=== PATIENT | female | born 1970 | race Caucasian/White ===

== ENCOUNTER 2017-08-17 13:19 | Day surgery (SDC) | payer BC ==
[2017-08-16 10:43] VITALS: BMI 22.6
[2017-08-17] MEDS ORDERED: ONDANSETRON 4 MG/2 ML VIAL IVPUSH PRN (14:10)
[2017-08-17] MEDS ORDERED: PROMETHAZINE HCL 25 MG/1 ML VIAL IVPUSH PRN (14:10)
[2017-08-17] MEDS ORDERED: oxyCODONE HCL 5 MG TABLET PO PRN (14:10)
[2017-08-17] MEDS ORDERED: LACTATED RINGERS SOLUTION 1,000 ML IV SCH (14:15)
[2017-08-17] MEDS ORDERED: MIDAZOLAM HCL 2 MG/2 ML SINGLE DOSE VIAL ONE ×2 (14:42)
--- NOTE | 2017-08-17 14:42 | HP ---
History & Physical Update - History History: No Change Currently as noted:: Menorrhagia, anemia improved on OCP - Physical Physical: No Change - Assessment Assessment: No Change - Plan Plan: No Change Currently as noted:: Hysteroscopy, D&C, endometrial ablation
[2017-08-17] MEDS ORDERED: PROPOFOL 20 ML ONE (14:47)
[2017-08-17] MEDS ORDERED: SUCCINYLCHOLINE CHLORIDE 200 MG/10 ML VIAL ONE (14:48)
[2017-08-17] MEDS ORDERED: ceFAZolin SODIUM 1 GM VIAL IVPB ONE (14:59)
--- NOTE | 2017-08-17 16:11 | OP ---
Operative Note - Note: Operative Date: 08/17/17 Pre-Operative Diagnosis: Menometrorrhagia, Anemia Operation: Hysteroscopy, D&C, suction, thermal endometrial ablation Findings: EUA= Active vaginal bleeding, Bulky AV uterus c/w ~10wk Hysteroscopy= normal uterine cavity with thick, irregular, sloughing endometrium. Post-Operative Diagnosis: Same as Pre-op Surgeon: Aaron Mendiola Anesthesiologist/LASER BEAM MACHINE OPERATOR: Lily Dinh MD Anesthesia: General Specimens Removed: Endometrial curettings Estimated Blood Loss (mls): 30 Blood Volume Replaced (mls): 0 Fluid Volume Replaced (mls): 700 Operative Report Dictated: Yes
[2017-08-17] MEDS ORDERED: ACETAMINOPHEN 1000 MG/100 ML VIAL (NON FORMULARY) IVPB ONE (16:29)
[2017-08-17] MEDS ORDERED: ACETAMINOPHEN INJECTION 100 ML IVPB ONE (16:36)
[2017-08-17 18:47] VITALS: TEMP 98.4
[2017-08-17] MEDS ORDERED: oxyCODONE HCL 5 MG TABLET ONE (18:57)
[2017-08-17 20:54] VITALS: BP 139/72; PULSE 60
--- NOTE | 2017-08-18 01:00 | OP ---
DATE OF OPERATION: 08/17/2017 PREOPERATIVE DIAGNOSIS: Menometrorrhagia, anemia. POSTOPERATIVE DIAGNOSIS: Menometrorrhagia, anemia. PROCEDURE: Hysteroscopy, dilation and curettage, uterine suction, global thermal endometrial ablation. SURGEON: Krishna Mendiola M.D. INSIDE SALES ADVERTISING EXECUTIVE: None. ANESTHESIOLOGIST: Lily Dinh M.D. ANESTHESIA: General. COMPLICATIONS: None. ESTIMATED BLOOD LOSS: 70 mL. INTRAVENOUS FLUIDS: 700 mL of crystalloids. PATHOLOGY: Endometrial curettings. FINDINGS: Examination under anesthesia revealed a normal vagina and cervix with active bleeding from the cervix. Bimanual examination showed a bulky anteverted uterus consistent with approximately 10 weeks' gestation and size. Hysteroscopy revealed a normal uterine cavity with thick irregular and endometrium as well as blood clots. Postoperative hysteroscopy revealed good hemostasis with good ablation results. PROCEDURE: The patient was met preoperatively. Risks, benefits, and alternatives of surgery were discussed in detail. The consents were reviewed. We discussed the expectations from the endometrial ablation including but not limited to postoperative pain, risk of infection, bleeding, risk of failed ablation, risk of thermal gonzalez, risk of perforation. The patient verbalized understanding and requested to proceed with surgery. The patient was then brought to the OR with the IV running. She was placed on the surgical table in the supine position. The general anesthesia was achieved without difficulty. The patient was then placed in a dorsal lithotomy position using adjustable Brian stirrups. She was examined under anesthesia with the findings as described above. The patient was then prepped and draped in the usual sterile fashion. A weighted speculum was introduced inside the vagina with good visualization of the cervix. The anterior cervix was grasped with a single-toothed tenaculum. The cervical os was then dilated to accommodate a size 27 Agustin dilator. A hysteroscope was gently introduced into the uterine cavity with the findings as described above. At that point, since the visualization of the uterine cavity was limited by sloughing endometrium and blood clots, the decision was made to proceed with the uterine curettage. The hysteroscope was removed. Uterine curettage was performed using a sharp curet, and the tissue was submitted to pathology for evaluation. The hysteroscope was once again advanced into the uterine cavity. At that point, the uterine cavity was noted to be within normal limits; however, there was still some endometrial tissue and debris floating around. To avoid further cervical manipulation, the decision was made to proceed with the ablation. A cervical seal was confirmed. The device was then used to accomplish global thermal endometrial ablation under direct visualization. The ablation was completed without complications successfully. Once this was done, the hysteroscope was removed from the uterus. Since some endometrial debris was still remaining inside the uterine cavity, the decision was made to proceed with a vacuum aspiration of the uterine cavity. The suction curettage was performed without complications, and the tissue was also sent to pathology. Once this was completed, good hemostasis was noted. All of the instruments were removed from the patient. Sponge, lap, and instrument counts were correct. Patient was returned to supine position and transferred to recovery room awake and in stable condition and awake. KRISHNA MENDIOLA M.D. [id number]
--- NOTE | 2017-08-21 13:47 | PATH ---
Surgical Pathology Report Patient Name: GARRETT IZAGUIRRE Med. Rec. #: [id number] /Age/Gender: 1970 (Age: 47) / F Account: [id number] Location: [facility] Taken: 08/17/2017 Received: 08/20/2017 Reported: 08/21/2017 Physicians: Aaron Mendiola M.D. Specimen(s) Received A: ENDOMETRIAL CURETTINGS BEFORE ABLATION B: ENDOMETRIAL CURETTINGS AFTER ABLATION Clinical History Leiomyoma of uterus Final Diagnosis A. ENDOMETRIAL CURETTINGS, BEFORE ABLATION: ENDOMETRIAL TISSUE WITH MARKEDLY DECIDUALIZED STROMA AND INACTIVE ENDOMETRIAL GLANDS, CONSISTENT WITH EXOGENOUS HORMONE THERAPY EFFECT. SEPARATE ENDOMETRIAL POLYP. B. ENDOMETRIAL CURETTINGS, AFTER ABLATION: ENDOMETRIAL TISSUE WITH MARKEDLY DECIDUALIZED STROMA AND INACTIVE ENDOMETRIAL GLANDS, CONSISTENT WITH EXOGENOUS HORMONE THERAPY EFFECT. SEPARATE ENDOMETRIAL POLYPS AND SMOOTH MUSCLE BUNDLES PRESENT. Electronically Signed Katelin Tamayo M.D. Gross Description A. Received in formalin labeled "endometrial curettings before ablation," is a 5.5 x 4.7 x 0.6 cm aggregate of chaparro soft tissue fragments. The formalin is filtered and the specimen is entirely submitted in 6 cassettes. B. Received in formalin labeled "endometrial curetting after ablation," is a 9.0 x 6.2 x 0.7 cm aggregate of chaparro-brown soft tissue fragments. The formalin is filtered and the specimen is entirely submitted in 14 cassettes. DL/08/20/2017 saudi/08/20/2017
== END 2017-08-17 20:20 | disposition home or self-care (01) ==
LOC: JASU-SURG 13:19
PROVIDERS: ATTEND Obstetrics & Gynecology
PROC: 0U5B8ZZ Destruction of Endometrium, Via Natural or Artificial Opening Endoscopic (ICD-10-PCS; principal; 2017-08-17 14:30)
DX: N92.1 Excessive and frequent menstruation with irregular cycle (principal); D64.9 Anemia, unspecified
CPT/HCPCS: 84703; 88305-TC; 94760; J0131

== ENCOUNTER 2021-03-28 04:22 | Day surgery (SDC) | payer BC ==
[2021-03-24 14:40] VITALS: BMI 24.0
[2021-03-28] MEDS ORDERED: DEXAMETHASONE SOD PHOSPHATE 4 MG/1 ML VIAL ONE (13:11)
[2021-03-28] MEDS ORDERED: PROPOFOL 20 ML ONE (13:11)
[2021-03-28] MEDS ORDERED: LIDOCAINE HCL/PF 2% SDV 5ML VIAL ONE (13:11)
[2021-03-28] MEDS ORDERED: MIDAZOLAM HCL 2 MG/2 ML SINGLE DOSE VIAL ONE (13:11)
[2021-03-28] MEDS ORDERED: ceFAZolin SODIUM 1 GM VIAL IVPB ONE (13:30)
[2021-03-28] MEDS ORDERED: oxyCODONE HCL 5 MG TABLET PO PRN (13:52)
[2021-03-28] MEDS ORDERED: ONDANSETRON 4 MG/2 ML VIAL IVPUSH PRN (13:52)
[2021-03-28] MEDS ORDERED: LACTATED RINGERS SOLUTION 1,000 ML IV SCH (14:00)
[2021-03-28 15:30] VITALS: TEMP 97.9
[2021-03-28 16:57] VITALS: BP 134/74; PULSE 56
== END 2021-03-28 16:35 | disposition home or self-care (01) ==
LOC: JASU-SURG 04:22
PROVIDERS: ATTEND Obstetrics & Gynecology
PROC: 0UDB7ZX Extraction of Endometrium, Via Natural or Artificial Opening, Diagnostic (ICD-10-PCS; 2021-03-28)
PROC: 0UB98ZX Excision of Uterus, Via Natural or Artificial Opening Endoscopic, Diagnostic (ICD-10-PCS; principal; 2021-03-28 11:30)
DX: N84.0 Polyp of corpus uteri (principal); N93.9 Abnormal uterine and vaginal bleeding, unspecified
CPT/HCPCS: 81025; 88305-TC; 94760

== ENCOUNTER 2022-10-21 19:21 | Emergency (ER) | payer BC ==
[2022-10-21 19:34] VITALS: BP 111/79; PULSE 64; RESP 18; TEMP 98.7; BMI 23.0
[2022-10-21] MEDS ORDERED: SIMETHICONE 80 MG TAB.CHEW (FP) PO ONE (20:07)
[2022-10-21] MEDS ORDERED: FAMOTIDINE 20 MG TABLET PO ONE (20:08)
[2022-10-21] MEDS ORDERED: SIMETHICONE 80 MG TAB.CHEW (FP) ONE (20:14)
[2022-10-21] MEDS ORDERED: FAMOTIDINE 20 MG TABLET ONE (20:14)
[2022-10-21 20:35] LABS: EPI CELLS 13 /uL (0-25.1); HYALINE CASTS 0 /uL (0-3.1); URINE APPEARANCE CLEAR; URINE BACTERIA 77 /uL (0-1359); URINE BILIRUBIN NEGATIVE (NEGATIVE); URINE COLOR YELLOW; URINE GLUCOSE (UA) NEGATIVE (NEGATIVE); URINE KETONE 1+ (NEGATIVE); URINE LEUK ESTERASE TRACE (NEGATIVE); URINE NITRITE NEGATIVE (NEGATIVE); URINE PROTEIN 1+ (NEGATIVE); URINE RBC 2731 /uL (0-23.9); URINE UROBILINOGEN 0.2 mg/dL (0.2-1.0); URINE WBC 34 /uL (0-25.8)
[2022-10-21] MEDS ORDERED: LACTULOSE 20 GM/30 ML UDC (FOR ORAL USE ONLY) PO ONE (20:53)
[2022-10-21] MEDS ORDERED: NITROFURANTOIN MACROCRYSTAL 50 MG CAPSULE (FP) PO ONE (21:00)
[2022-10-21] MEDS ORDERED: LACTULOSE 20 GM/30 ML UDC (FOR ORAL USE ONLY) ONE (21:04)
[2022-10-21] MEDS ORDERED: NITROFURANTOIN MACROCRYSTAL 50 MG CAPSULE (FP) ONE (21:04)
== END 2022-10-21 21:39 | disposition home or self-care (01) ==
LOC: JER 19:21
DX: R10.32 Left lower quadrant pain (principal); K59.00 Constipation, unspecified; N39.0 Urinary tract infection, site not specified
CPT/HCPCS: 74019-TC-FY; 81003; 87086; 99284-25

== ENCOUNTER 2022-12-06 18:02 | Inpatient (IN) | payer BC ==
[2022-12-06] MEDS ORDERED: ACETAMINOPHEN 1000 MG/100 ML BAG IVPB ONE (19:49)
[2022-12-06] MEDS ORDERED: ONDANSETRON 4 MG/2 ML VIAL IVPUSH ONE (19:50)
[2022-12-06] MEDS ORDERED: FAMOTIDINE 20 MG/50 ML IVPB 20 MG/50 ML MG IVPB ONE (19:50)
[2022-12-06] MEDS ORDERED: SODIUM CHLORIDE 0.9% 500 ML INFUS.BAG IV ONE ×2 (19:50→22:42)
[2022-12-06] MEDS ORDERED: ONDANSETRON 4 MG/2 ML VIAL ONE ×2 (19:54→21:07)
[2022-12-06] MEDS ORDERED: FAMOTIDINE 10 MG/ML VIAL IVPB ONE (19:54)
[2022-12-06] MEDS ORDERED: ACETAMINOPHEN INJECTION 100 ML IVPB ONE (19:54)
[2022-12-06 20:22] LABS: BASO % 0.6 % (0-2.0); EOS % 0.1 % (0-4.5); HEMATOCRIT 38.5 % (32.4-45.2); HEMOGLOBIN 13.1 GM/dL (10.7-15.3); LYMPH % 7.3 % (8-40); MCHC 34.1 g/dl (32.0-36.0); MEAN PLT VOLUME 9.4 fl (7.5-11.1); MONO % 8.3 % (3.8-10.2); NEUT % 83.7 % (42.8-82.8); PLATELET COUNT 236 10^3/uL (134-434); RBC 4.38 M/mm3 (3.60-5.2); RDW 13.6 % (11.6-15.6); WHITE BLOOD COUNT 12.7 K/mm3 (4.0-10.0)
[2022-12-06 20:30] LABS: EPI CELLS 12 /uL (0-25.1); HYALINE CASTS 1 /uL (0-3.1); INR 1.04 (0.83-1.09); PH,URINE 5.5 (5.0-8.0); PROTHROMBIN TIME (PATIENT) 12.1 SEC (9.7-13.0); URINE APPEARANCE CLEAR; URINE BACTERIA 205 /uL (0-1359); URINE BILIRUBIN NEGATIVE (NEGATIVE); URINE COLOR YELLOW; URINE GLUCOSE (UA) NEGATIVE (NEGATIVE); URINE KETONE 1+ (NEGATIVE); URINE LEUK ESTERASE NEGATIVE (NEGATIVE); URINE NITRITE NEGATIVE (NEGATIVE); URINE PROTEIN NEGATIVE (NEGATIVE); URINE RBC 622 /uL (0-23.9); URINE UROBILINOGEN 0.2 mg/dL (0.2-1.0); URINE WBC 12 /uL (0-25.8)
[2022-12-06 20:32] LABS: ACTIVATED PTT 30.4 SECONDS (25.2-36.5)
[2022-12-06 20:33] LABS: POTASSIUM 3.9 mmol/L (3.5-5.1)
[2022-12-06 20:34] LABS: CALCIUM 9.7 mg/dL (8.5-10.1)
[2022-12-06 20:36] LABS: MAGNESIUM 1.9 mg/dL (1.8-2.4)
[2022-12-06 20:38] LABS: PHOSPHOROUS 2.6 mg/dL (2.5-4.9)
[2022-12-06 20:40] LABS: BILIRUBIN,TOTAL 0.6 mg/dL (0.2-1); TOT PROT 7.4 g/dl (6.4-8.2)
[2022-12-06] MEDS ORDERED: KETOROLAC TROMETHAMINE 15 MG/ML VIAL IVPUSH ONE (20:50)
[2022-12-06] MEDS ORDERED: KETOROLAC TROMETHAMINE 15 MG/ML VIAL ONE (21:06)
[2022-12-06] MEDS ORDERED: ONDANSETRON 4 MG/2 ML VIAL IVPB ONE (21:06)
[2022-12-06] MEDS ORDERED: CEFTRIAXONE 1 GM in DEXTROSE 5%-WATER - 100 ML IVPB ONE (22:43)
[2022-12-06] MEDS ORDERED: CEFTRIAXONE 1 GM/50 ML BAG ONE (22:49)
[2022-12-06] MEDS ORDERED: morphine CARPU-JECT 2 MG/1 ML DISP.SYRIN IVPUSH ONE (22:57)
[2022-12-07] MEDS ORDERED: ONDANSETRON 4 MG/2 ML VIAL IVPUSH PRN ×3 (00:29→19:16)
[2022-12-07] MEDS ORDERED: ACETAMINOPHEN 325 MG TABLET (FP) PO PRN ×2 (00:29→19:16)
[2022-12-07] MEDS ORDERED: SODIUM CHLORIDE 1,000 ML IV SCH ×2 (00:30→19:16)
[2022-12-07] MEDS ORDERED: HYDROmorphone HCl 2 MG/ML VIAL IVPUSH ONE (05:04)
[2022-12-07] MEDS ORDERED: KETOROLAC TROMETHAMINE 30 MG/1 ML VIAL IVPUSH ONE (05:04)
[2022-12-07] MEDS ORDERED: HYDROmorphone HCl 2 MG/ML VIAL ONE (05:05)
[2022-12-07] MEDS ORDERED: KETOROLAC TROMETHAMINE 30 MG/1 ML VIAL ONE (05:05)
[2022-12-07] MEDS ORDERED: CEFTRIAXONE 1 GM in DEXTROSE 5%-WATER - 50 ML IVPB SCH (12:00)
[2022-12-07] MEDS ORDERED: CEFTRIAXONE 1 GM/50 ML BAG ONE (12:07)
[2022-12-07] MEDS ORDERED: HYDROmorphone HCl 2 MG/ML VIAL IVPB PRN ×2 (14:21→19:16)
[2022-12-07 16:20] VITALS: BMI 22.7
[2022-12-07] MEDS ORDERED: MIDAZOLAM HCL 2 MG/2 ML SINGLE DOSE VIAL ONE (17:57)
[2022-12-07] MEDS ORDERED: FENTANYL CITRATE/PF 50 MCG/ML VIAL ONE ×4 (17:57→19:37)
[2022-12-07] MEDS ORDERED: PROPOFOL 40 ML ONE (17:57)
[2022-12-07] MEDS ORDERED: GENTAMICIN SO4 80 MG/2 ML VIAL IVPB ONE (18:10)
[2022-12-07] MEDS ORDERED: IOHEXOL 300 MG/ML INFUS..BTL IJ ONE (18:35)
[2022-12-07] MEDS ORDERED: DEXAMETHASONE SOD PHOSPHATE 4 MG/1 ML VIAL ONE (18:56)
[2022-12-07] MEDS ORDERED: ONDANSETRON 4 MG/2 ML VIAL ONE (18:56)
[2022-12-07] MEDS ORDERED: LACTATED RINGERS SOLUTION 1,000 ML IV SCH (19:00)
[2022-12-08 01:07] VITALS: RESP 18
[2022-12-08] MEDS ORDERED: CEFTRIAXONE 1 GM in DEXTROSE 5%-WATER - 50 ML IVPB SCH (10:00)
[2022-12-08 12:17] LABS: BASO % 0.3 % (0-2.0); EOS % 0.3 % (0-4.5); HEMATOCRIT 34.1 % (32.4-45.2); HEMOGLOBIN 11.8 GM/dL (10.7-15.3); LYMPH % 13.5 % (8-40); MCH 30.5 pg (25.7-33.7); MCHC 34.7 g/dl (32.0-36.0); MEAN CELL VOLUME 87.8 fl (80-96); MONO % 9.7 % (3.8-10.2); NEUT % 76.2 % (42.8-82.8); PLATELET COUNT 195 10^3/uL (134-434); RBC 3.89 M/mm3 (3.60-5.2); RDW 13.7 % (11.6-15.6); WHITE BLOOD COUNT 8.4 K/mm3 (4.0-10.0)
[2022-12-08 12:47] LABS: BLOOD UREA NITROGEN 10.2 mg/dL (7-18); CALCIUM 8.3 mg/dL (8.5-10.1)
[2022-12-08 12:49] LABS: CREATININE 0.6 mg/dL (0.55-1.3)
[2022-12-08 12:50] LABS: BILIRUBIN,TOTAL 0.4 mg/dL (0.2-1)
[2022-12-08 12:51] LABS: TOT PROT 5.8 g/dl (6.4-8.2)
[2022-12-08 12:59] LABS: ALBUMIN 3.1 g/dl (3.4-5.0)
[2022-12-08 15:25] VITALS: BP 128/74; PULSE 58; TEMP 98.4
== END 2022-12-08 16:50 | disposition home or self-care (01) | DRG 661 ==
LOC: JER 18:02 → JERBED 23:37 → J8W 12-07 15:12
PROVIDERS: ADMIT Specialist; ATTEND Specialist
PROC: 0T778DZ Dilation of Left Ureter with Intraluminal Device, Via Natural or Artificial Opening Endoscopic (ICD-10-PCS; principal; 2022-12-07 18:30)
PROC: BT1FZZZ Fluoroscopy of Left Kidney, Ureter and Bladder (ICD-10-PCS; 2022-12-07 18:30)
DX: N13.2 Hydronephrosis with renal and ureteral calculous obstruction (principal); N17.9 Acute kidney failure, unspecified; R10.32 Left lower quadrant pain
CPT/HCPCS: 36415; 74177-TC; 76000-TC-FY; 80053; 81003; 83690; 83735; 84100; 84703; 85025; 85610; 85730; 86850; 86900; 86901; 87086; 94760; 99285-25; C1758; C2617; Q9967

== ENCOUNTER 2023-09-17 22:54 | Emergency (ER) | payer BC ==
[2023-09-17 23:03] VITALS: BP 164/81; PULSE 58; RESP 16; TEMP 98.1; BMI 22.3
== END 2023-09-18 02:43 | disposition home or self-care (01) ==
LOC: JER 22:54
DX: M79.89 Other specified soft tissue disorders (principal); R00.2 Palpitations
CPT/HCPCS: 93005; 93010; 93971; 99284-25